=== PATIENT | female | born 1955 | race Caucasian/White ===

== ENCOUNTER 2017-10-27 10:27 | Emergency (ER) | payer MEDICARE, MEDICAID ==
[~2017-10-27] VITALS: Ht 127 cm; Wt 34.9 kg
[~2017-10-27 10:27] MED LIST: ACETAMINOP160 MG/5 M PER TUBE; ASPIRIN325 PO; BACTROBAN CREAM30 G1 TOP; BENTYL10 MG/5 ML GT; BOUDREAUXS28 GM TP; CIPROFLOXACIN500 M1 PO; CLARITIN10 MG PO; GLYCOLAX POWDER17 G1 PER TUBE; GUAIFENESIN DM118 ML; LEVOTHYROXINE0.05 MG PO; LORTAB PER TUBE; LOTRIMIN30 GM TP; MAXITROL EYE DRO5 ML OP; MAXITROL EYE O3.5 GM OP; MIRALAX17 GM PO; MIRALAX255 GM GT; MUPIROCIN22 GM; NEO/POLYMIXIN/DE5 M1 TOP; NUTREN; PREVACID 15 MG15 M4 PER TUBE; REGLAN 10 MG TA10 MG PO; REGLAN 5 MG TAB5 M1 GT; REGLAN 5 MG TAB5 M1 PO; REGLAN 5 MG TAB5 MG PT; ROBITUSSIN100 MG/5 M PO; ROBITUSSIN100 MG/53 PER TUBE; ROBITUSSIN100 MG/53 PO; ROBITUSSIN15 MG/5 ML GT; SEROQUEL 50 MG50 MG PO; SEROQUEL XR200 MG GT; SEROQUEL200 MG PER TUBE; SYNTHROID50 MCG GT; TRIPLE ANTIBIO1 EACH TP; TRIPLE PASTE TP; TYLENOL EX167 MG/5 M GT; TYLENOL325 MG PO; ZANTAC 150MG T150 M1 GT; ZANTAC 150MG T150 M1 PO; ZANTAC 150MG T150 MG PO; ZINC OXIDE60 GM TP
[2017-10-27 13:15] VITALS: BP 00/00
== END 2017-10-27 13:18 | disposition home or self-care (01) ==
LOC: M.ERS 10:27
DX: Z46.59 Encounter for fitting and adjustment of other gastrointestinal appliance and device (principal); F41.9 Anxiety disorder, unspecified; F32.9 Major depressive disorder, single episode, unspecified; K21.9 Gastro-esophageal reflux disease without esophagitis; E03.9 Hypothyroidism, unspecified

== ENCOUNTER 2018-03-05 13:18 | Emergency (ER) | payer MEDICARE, MEDICAID ==
[~2018-03-05] VITALS: Ht 121.9 cm; Wt 29.5 kg
[2018-03-05 15:03] VITALS: BP 112/60
== END 2018-03-05 15:03 | disposition home or self-care (01) ==
LOC: M.ERS 13:18
DX: Z43.1 Encounter for attention to gastrostomy (principal); G80.9 Cerebral palsy, unspecified; F41.9 Anxiety disorder, unspecified; F32.9 Major depressive disorder, single episode, unspecified; K21.9 Gastro-esophageal reflux disease without esophagitis; E03.9 Hypothyroidism, unspecified

== ENCOUNTER 2018-03-06 10:23 | Emergency (ER) | payer MEDICARE, MEDICAID ==
[~2018-03-06] VITALS: Ht 121.9 cm; Wt 27.2 kg
[2018-03-06 12:25] VITALS: BP 154/82
== END 2018-03-06 12:26 | disposition home or self-care (01) ==
LOC: M.ERS 10:23
DX: K94.23 Gastrostomy malfunction (principal); F41.9 Anxiety disorder, unspecified; K21.9 Gastro-esophageal reflux disease without esophagitis; E03.9 Hypothyroidism, unspecified